=== PATIENT | female | born 1950 | race Caucasian/White ===

== ENCOUNTER 2017-01-04 21:06 | Emergency (ER) | payer OTHER ==
[2017-01-04 22:55] VITALS: BP 126/74
== END 2017-01-04 22:55 | disposition home or self-care (01) ==
LOC: ED 21:06
DX: M54.42 Lumbago with sciatica, left side (principal); I10 Essential (primary) hypertension; E11.9 Type 2 diabetes mellitus without complications
CPT/HCPCS: Q0092

== ENCOUNTER 2017-05-01 16:39 | Inpatient (IN) | payer OTHER ==
[~2017-05-01] VITALS: Ht 149.9 cm; Wt 84.0 kg
[2017-05-01 19:05] LABS: BASOPHIL % 0.4 % (0-2); PLATELET COUNT 210 x10^3mcL (130-400); RED CELL DISTRIBUTION WIDTH 12.7 % (11.5-14.5)
[2017-05-01 19:28] LABS: ALBUMIN 3.3 g/dL (3.4-5.0); BILIRUBIN TOTAL 0.3 mg/dL (0.20-1.00); CALCIUM 9.1 mg/dL (8.5-10.1); CARBON DIOXIDE 27.3 mmol/L (21-32); CREATININE SERUM 2.5 mg/dL (0.6-1.0); POTASSIUM SERUM 3.7 mmol/L (3.5-5.1); TOTAL PROTEIN, SERUM 7.3 g/dL (6.4-8.2)
[2017-05-01 19:35] LABS: T3 TOTAL 0.68 ng/mL
[2017-05-01 19:52] LABS: CK-MB 0.9 ng/mL (0-3.6); ERYTHROCYTE SED RATE 36 mm/hr (0-30)
[2017-05-01 20:02] LABS: microscopic required? YES; urine erythrocyte 1+ (NEGATIVE)
[2017-05-01 20:24] LABS: FREE T4 1.09 ng/dL (0.76-1.46); FREE THYROXINE INDEX 2.8 ug/dL (1.4-4.5); T4(THYROXINE) 7.7 ug/dL (4.7-13.3)
[2017-05-01 22:22] VITALS: BP 131/68
[2017-05-01 23:17] LABS: AMYLASE 39 U/L (25-115); HDL CHOLESTEROL 47 mg/dL (40-60); LIPASE 580 IU/L (73-393); MAGNESIUM 1.8 mg/dL (1.8-2.4); PHOSPHOROUS 3.6 mg/dL (2.5-4.9)
[2017-05-01 23:18] LABS: CHOLESTEROL 265 mg/dL (<200); CHOLESTEROL/HDL RATIO 5.6; TRIGLYCERIDES 467 mg/dL (<150)
[2017-05-01] MEDS ORDERED: NATURAL IRON65 MG PO (23:34)
[2017-05-01] MEDS ORDERED: JANUVIA100 M1 PO (23:37)
[2017-05-01] MEDS ORDERED: DEXILANT60 M1 PO (23:38)
[2017-05-01] MEDS ORDERED: VITAMIN D50000 I4 PO (23:40)
[2017-05-01] MEDS ORDERED: FLUOXETINE HYDR20 M2 PO (23:41)
[2017-05-01] MEDS ORDERED: ATENOLOL25 MG PO (23:42)
[2017-05-01] MEDS ORDERED: LIPI20 PO (23:42)
[2017-05-01] MEDS ORDERED: RANITIDINE HYD150 M2 PO (23:43)
[2017-05-01] MEDS ORDERED: BENTYL20 MG PO (23:44)
[2017-05-01] MEDS ORDERED: BENICAR HCT1 TAB PO (23:46)
[2017-05-01] MEDS ORDERED: NEU300 PO (23:47)
[2017-05-02] MEDS ORDERED: TRESIBA FL200 UNIT/1 SC (01:08)
[2017-05-02] MEDS ORDERED: TRIBENZOR1 TA4 PO (01:13)
[2017-05-02 06:11] LABS: CALCIUM 8.6 mg/dL (8.5-10.1); CARBON DIOXIDE 24.3 mmol/L (21-32); CREATININE SERUM 1.9 mg/dL (0.6-1.0); POTASSIUM SERUM 4.8 mmol/L (3.5-5.1)
[2017-05-02 06:25] VITALS: BP 130/64
[2017-05-02 06:48] LABS: BASOPHIL % 0.4 % (0-2); PLATELET COUNT 196 x10^3mcL (130-400); RED CELL DISTRIBUTION WIDTH 12.7 % (11.5-14.5)
[2017-05-02 07:22] VITALS: BP 99/59
[2017-05-02 09:56] VITALS: BP 111/53
[2017-05-02 12:41] VITALS: Ht 149.9 cm; Wt 84.0 kg
[2017-05-02 13:13] VITALS: BP 109/58
[2017-05-02 16:41] VITALS: BP 113/48
[2017-05-02 20:45] VITALS: BP 134/65
[2017-05-03 06:17] VITALS: BP 106/71
[2017-05-03 07:31] LABS: CALCIUM 8.7 mg/dL (8.5-10.1); CARBON DIOXIDE 23.9 mmol/L (21-32); CREATININE SERUM 1.6 mg/dL (0.6-1.0); MAGNESIUM 1.9 mg/dL (1.8-2.4); PHOSPHOROUS 2.9 mg/dL (2.5-4.9)
[2017-05-03 09:33] VITALS: BP 112/62
[2017-05-03 10:01] LABS: BASOPHIL % 0.3 % (0-2); PLATELET COUNT 202 x10^3mcL (130-400)
[2017-05-03 11:10] LABS: AMPHETAMINE QUAL UR NONE DETECTED (NEG <=1000)
[2017-05-03 14:25] VITALS: BP 103/67
[2017-05-03] MEDS ORDERED: NOR5 PO (15:15)
[2017-05-03] MEDS ORDERED: BG FS (15:15)
[2017-05-03] MEDS ORDERED: LEVEMIR100 U/M1 SC (15:15)
[2017-05-03] MEDS ORDERED: BENICAR HCT1 TAB PO (15:16)
[2017-05-03] MEDS ORDERED: ACCU-CHEK1 EACH MC (15:18)
[2017-05-03] MEDS ORDERED: INSULIN SYRING1 EA10 MC (15:18)
[2017-05-03] MEDS ORDERED: HUMULIN R100 U/1 M1 SQ (15:24)
[2017-05-03 15:25] VITALS: BP 103/67
[2017-05-03] MEDS ORDERED: ATORVASTATIN CA40 M1 PO (15:33)
[2017-05-03] MEDS ORDERED: CIPRO500 MG PO (15:38)
[2017-05-03] MEDS ORDERED: LAC PO (15:38)
[2017-05-03 18:23] VITALS: BP 148/82
== END 2017-05-03 20:37 | disposition home or self-care (01) | DRG 637 ==
LOC: ED 16:39 → DU 20:53
PROVIDERS: Family Medicine; Specialist
DX: E11.00 Type 2 diabetes mellitus with hyperosmolarity without nonketotic hyperglycemic-hyperosmolar coma (NKHHC) (principal); N17.0 Acute kidney failure with tubular necrosis; N39.0 Urinary tract infection, site not specified; D68.69 Other thrombophilia; E87.1 Hypo-osmolality and hyponatremia; E44.1 Mild protein-calorie malnutrition; E11.65 Type 2 diabetes mellitus with hyperglycemia; E11.42 Type 2 diabetes mellitus with diabetic polyneuropathy; E11.51 Type 2 diabetes mellitus with diabetic peripheral angiopathy without gangrene; I10 Essential (primary) hypertension; E78.5 Hyperlipidemia, unspecified; R31.9 Hematuria, unspecified; F32.9 Major depressive disorder, single episode, unspecified; Z68.36 Body mass index [BMI] 36.0-36.9, adult; Z91.14 Patient's other noncompliance with medication regimen; Z79.4 Long term (current) use of insulin
CPT/HCPCS: 36600; 82962; 83880; 84439; J0696; J1815; J3475; J3490; J7030; Q0092

== ENCOUNTER 2018-10-28 11:49 | Observation (INO) | payer OTHER ==
[~2018-10-28] VITALS: Ht 149.9 cm; Wt 95.3 kg
[~2018-10-28 11:49] MED LIST: ACCU-CHEK1 EACH MC; ATENOLOL25 MG PO; ATORVASTATIN CA40 M1 PO; BENICAR HCT1 TAB PO; BENTYL20 MG PO; BG FS; CIPRO500 MG PO; DEXILANT60 M1 PO; FLUOXETINE HYDR20 M2 PO; HUMULIN R100 U/1 M1 SQ; INSULIN SYRING1 EA10 MC; JANUVIA100 M1 PO; LAC PO; LEVEMIR100 U/M1 SC; LIPI20 PO; NATURAL IRON65 MG PO; NEU300 PO; NOR5 PO; RANITIDINE HYD150 M2 PO; TRESIBA FL200 UNIT/1 SC; TRIBENZOR1 TA4 PO; VITAMIN D50000 I4 PO
[2018-10-28 11:59] VITALS: Ht 149.9 cm; Wt 95.3 kg
--- NOTE | 2018-10-28 12:17 | NUR ---
PT IN RM
--- NOTE | 2018-10-28 12:19 | NUR ---
PT HERE FOR C/O CHEST PAIN INTERMITTENT SINCE 2 DAYS AGO TO MIDSTERNAL LOCATION, DESC "IT FEELS LIKE A BROOMSTICK POKING ME." PT STS PAIN OCCASIONALLY RADIATES. PT DENIES PAIN AT THIS TIME. PLACED ON FULL MONITORS
--- NOTE | 2018-10-28 12:22 | NUR ---
DR GRIFFIN AT BEDSIDE FOR MSE
[2018-10-28 12:36] LABS: BASOPHIL % 0.2 % (0-2); PLATELET COUNT 328 x10^3mcL (130-400); RED CELL DISTRIBUTION WIDTH 14.2 % (11.5-14.5)
--- NOTE | 2018-10-28 12:48 | NUR ---
PT REPORTS CP AT 5/10 DULL TO SUBSTERNAL LOCATION AT THIS TIME. NITRO TAB GIVEN
[2018-10-28 12:58] LABS: CALCIUM 10.2 mg/dL (8.5-10.1); CARBON DIOXIDE 29.9 mmol/L (21-32); CREATININE SERUM 1.7 mg/dL (0.6-1.0)
[2018-10-28 13:11] LABS: ALBUMIN 3.5 g/dL (3.4-5.0); BILIRUBIN TOTAL 0.3 mg/dL (0.20-1.00); TOTAL PROTEIN, SERUM 7.5 g/dL (6.4-8.2)
[2018-10-28 13:13] LABS: T4(THYROXINE) 8.3 ug/dL (4.7-13.3)
--- NOTE | 2018-10-28 13:15 | NUR ---
PT REPORTS FEELING BETTER REGARDING CHEST PAIN AND STS "I'M SLEEPY NOW BECAUSE I DIDN'T SLEEP ALL NIGHT."
--- NOTE | 2018-10-28 14:05 | NUR ---
PT ASLEEP, EASY TO AROUSE AWAKE
--- NOTE | 2018-10-28 14:45 | NUR ---
REPORT GIVEN TO JAIRO MAJOR RN
--- NOTE | 2018-10-28 14:45 | NUR ---
REPORT TAKEN FROM ER NURSE, PT TO BE BROUGHT TO MST UNIT AFTTER PLACEMENT OF IV. ROOM CLEAN AND READY FOR PT ARRIVAL.
[2018-10-28] MEDS ORDERED: NEU300 PO (14:54)
[2018-10-28] MEDS ORDERED: ZANTAC 150150 MG PO (14:54)
[2018-10-28] MEDS ORDERED: DICYCLOMINE HCL10 MG PO (14:55)
[2018-10-28] MEDS ORDERED: [UNRECOGNIZED DRUG - CODE] PO (14:56)
[2018-10-28] MEDS ORDERED: ATENOLOL25 MG PO (14:56)
[2018-10-28] MEDS ORDERED: MELOXICAM7.5 M1 PO (14:56)
[2018-10-28] MEDS ORDERED: OLMSRTN-AMLDPN1 EACH PO (14:57)
[2018-10-28] MEDS ORDERED: JANUVIA100 M1 PO (14:57)
[2018-10-28] MEDS ORDERED: DEXILANT60 M1 PO (14:58)
[2018-10-28] MEDS ORDERED: APR10 PO (14:59)
[2018-10-28] MEDS ORDERED: LIPI20 PO (14:59)
[2018-10-28] MEDS ORDERED: PROMETHAZINE25 M3 PO (15:00)
[2018-10-28] MEDS ORDERED: FERROUS SULFAT325 M2 PO (15:00)
[2018-10-28] MEDS ORDERED: TRESIBA FL100 UNIT/1 SQ (15:01)
--- NOTE | 2018-10-28 15:18 | NUR ---
RECEIVED PT FROM ER, PT ADMIT FOR CHEST PAIN, PT IS A/O X4, VERBAL RESPONSIVE, ABLE TO TELL WHAT SHE NEEDS. LUNG SOUND CLEAR BILATERAL, NO COUGH, NO SOB, PT IS ON TELE 1, SB, HR 58, C/O MILD CHEST PAIN 3/10 AND RADIATE TO BACK, BOWEL SOUND PRESENT ALL 4 QUADRANTS, NO DISTENTION, NO TENDER. PEDAL PULSE PRESENT BOTH FEET,NO EDEMA, IV AT RIGHT AC,NO LEAKING, NO INFILTRATIION, ALL ADLS ASSIST, ALL NEED MET, CALL LIGHT IN REACH, WILL CONTINUE TO MONITOR.
[2018-10-28 15:36] VITALS: BP 126/63
--- NOTE | 2018-10-28 19:34 | NUR ---
REPORT GIVEN TO [facility]AGGERMAN NURSE CARE ENDORSED
--- NOTE | 2018-10-28 19:41 | NUR ---
RECIEVED PT FROM DAY NURSE. PT RESTING IN BED COMFORTABLY. DENIES PAIN AT THIS TIME. TELE #1, SINUS TAVARES. DENIES CHEST PAIN, N/V, DIZZINESS, AND PALPATATIONS. NO SOB, ON RA. BREATHING EVEN AND UNLABORED, LUNG SOUNDS CTA. BOWEL SOUNDS ACTIVE X4, LAST BM 10/27. CALL LIGHT WITHIN REACH, BED AT LOWEST POSITION. WILL CONTINUE TO MONITOR.
[2018-10-28 20:20] VITALS: BP 106/67
[2018-10-29 00:20] LABS: UA SPECIFIC GRAVITY >=1.030 (1.005-1.035); microscopic required? YES; urine erythrocyte NEGATIVE (NEGATIVE)
[2018-10-29 00:59] LABS: AMPHETAMINE QUAL UR NONE DETECTED (See below)
--- NOTE | 2018-10-29 02:14 | NUR ---
PT RESTING IN BED WITH EYES CLOSED. LAYING ON L SIDE. NO SIGNS OF DISTRESS NOTED. BREATHING EVEN/UNLABORED ON RA. CALL LIGHT WITHIN REACH, BED AT LOWEST POSITION. WILL CONTINUE TO MONITOR.
--- NOTE | 2018-10-29 02:16 | NUR ---
I HAVE REVIEWED THE DATA COLLECTION BY ISAAC TURCIOS: UNIQUE CLARKE ENTERED ON 10/28-10/29 I CONCUR WITH THE DATA AND ANY EXCEPTIONS OR COMMENTS ARE LISTED BELOW:
--- NOTE | 2018-10-29 02:37 | NUR ---
SPOKE TO DR. AG VIA TELEPHONE. MADE AWARE OF UA RESULTS: 1+ LEUK. REC'D ORDER FOR URINE CULTURE AND ROCEPHIN DAILY STARTING NOW.
--- NOTE | 2018-10-29 03:54 | NUR ---
PT COMPLAINING OF 5/10 DULL EPIGASTRIC PAIN AND N/V. GIVEN PRN NORCO AND ZOFRAN. WILL CONTINUE TO MONITOR.
[2018-10-29 05:51] VITALS: BP 123/58
[2018-10-29 06:28] LABS: CALCIUM 9.8 mg/dL (8.5-10.1); CARBON DIOXIDE 25.3 mmol/L (21-32); CREATININE SERUM 1.9 mg/dL (0.6-1.0); MAGNESIUM 1.7 mg/dL (1.8-2.4); POTASSIUM SERUM 4.9 mmol/L (3.5-5.1)
--- NOTE | 2018-10-29 07:15 | NUR ---
RECIEVED PT RESTING IN BED WITH NO PAIN, DISTRESS, OR SSO. A/O X4. IN INTACT AND PATENT WITH NO REDNESS OR INFLAMMATION. SAFETY PRECAUTIONS IN PLACE, CALL LIGHT WITHIN REACH, WILL MONITOR.
--- NOTE | 2018-10-29 07:20 | NUR ---
RECIEVED PT RESTING IN BED WITH NO PAIN, DISTRESS, OR SOB. PT A/O X4. PT ON TELE MONITOR#1, DENIES CP OR PRESSURE AT THIS TIME. SALIN LOCK INTACT AND PATENT WITH NO REDNESS OR INFLAMMATION IN RAC. SAFETY PRECAUTIONS IN PLACE, CALL LIGHT WITHIN REACH, WILL MONITOR.
[2018-10-29 07:29] LABS: BASOPHIL % 0.4 % (0-2); PLATELET COUNT 276 x10^3mcL (130-400); RED CELL DISTRIBUTION WIDTH 13.8 % (11.5-14.5)
[2018-10-29 08:28] VITALS: BP 116/73
--- NOTE | 2018-10-29 08:45 | NUR ---
RADIAOLOGY AT BEDSIDE PERFORMING ECHO.
--- NOTE | 2018-10-29 10:30 | NUR ---
PT TAKEN DOWN BY MARSHAL TO GET STRESS TEST PROCEDURE DONE.
--- NOTE | 2018-10-29 12:10 | NUR ---
PT BACK FROM STRESS TEST PROCEDURE.
--- NOTE | 2018-10-29 12:19 | NUR ---
PT C/O 8/10 DAILY FROM RECENT STRESS TEST PROCEDURE. MEDICATED WITH NORCO PER EMAR, WILL REASSESS.
[2018-10-29 12:56] VITALS: BP 109/55
--- NOTE | 2018-10-29 13:13 | NUR ---
PT STABLE AT THIS TIME. NO DISTRESS OR SOB NOTED. NO C/O CP OR PRESSURE. ALL CARES TOLERATED WELL. ENDORSED CARE TO ISAAC GUAMAN.
--- NOTE | 2018-10-29 13:30 | NUR ---
RECEIVED BEDSIDE RESPORT FROM NIGHT RN PAT SMITH. PATIENT IS STABLE NO APPARENT SIGNS OF PAIN, SOB, OR RESPIRATORY DISTRESS. PATIENT IS ON ROOM AIR. IV TO THE RIGHT AC INTACT, INFUSING WELL. NO EDEMA OR ERYTHEMA NOTED TO SITE. PATIENT DENIES OTHER NEEDS AT THIS TIME. QUESTIONS AND CONCERNS ADDRESSED. SAFETY PRECAUTIONS IN PLACE.
--- NOTE | 2018-10-29 15:02 | NUR ---
ADMINISTERED MEDICATION PER EMAR. PATIENT TOLORATED WELL. EDUCATED ON NEED FOR MEDICATION, WELL ADVERSE EFFECTS TO RESPORT. PATIENT VERBALIZED UNDERSTANDING. DENIES OTHER NEEDS AT THIS TIME. CALL LIGHT AND PHONE WITHIN REACH. BED IN LOW POSITION, BED RIALS UP X2. QUESTIONS AND CONCERNS ADDRESSED. SAFETY PRECAUTIONS IN PLACE.
[2018-10-29 16:32] VITALS: BP 122/56
--- NOTE | 2018-10-29 17:00 | NUR ---
PATIENT IS STABLE, NO APPARENT SIGNS OF PAIN, SOB, OR RESPIRATORY DISTRESS. PATIENT DENIES CHEST PAIN, DIZZINESS OR HEADACHE. IV DISCONTINUED. ID BANDS REMOVED. DISCHARGE INSTRUCTIONS GIVEN, PATIENT VERBALIZED UNDERSTANDING OF DISCHARGE INSTRUCTIONS AND FOLLOWUP APPOINTMENTS PENDING. ALL PERSONAL BELONGINGS WITH PATIENT. PATIENT WHEELED DOWN BY EYELET ROW MARKER VIA WHEEL CHAIR. DISCHARGE COMPLETE.
== END 2018-10-29 17:10 | disposition home or self-care (01) | DRG 313 ==
LOC: ED 11:49 → DU 14:17
PROVIDERS: Emergency Medicine; ADMIT Internal Medicine Pulmonary Disease
DX: R07.9 Chest pain, unspecified (principal); Z68.41 Body mass index [BMI] 40.0-44.9, adult; E11.22 Type 2 diabetes mellitus with diabetic chronic kidney disease; I12.9 Hypertensive chronic kidney disease with stage 1 through stage 4 chronic kidney disease, or unspecified chronic kidney disease; N18.9 Chronic kidney disease, unspecified; K21.9 Gastro-esophageal reflux disease without esophagitis; E66.9 Obesity, unspecified
CPT/HCPCS: 82962; 83880; A9500; G0378; J0696; J1815; J2405; J2785; J7050; J7060; Q0092

== ENCOUNTER 2018-11-04 01:10 | Emergency (ER) | payer OTHER ==
[~2018-11-04] VITALS: Ht 152.4 cm; Wt 92.5 kg
[~2018-11-04 01:10] MED LIST changes: +APR10 PO; +DICYCLOMINE HCL10 MG PO; +FERROUS SULFAT325 M2 PO; +MELOXICAM7.5 M1 PO; +OLMSRTN-AMLDPN1 EACH PO; +PROMETHAZINE25 M3 PO; +TRESIBA FL100 UNIT/1 SQ; +ZANTAC 150150 MG PO; +[UNRECOGNIZED DRUG - CODE] PO
[2018-11-04 01:14] VITALS: Ht 152.4 cm; Wt 92.5 kg
[2018-11-04 02:00] VITALS: BP 132/67
== END 2018-11-04 02:00 | disposition home or self-care (01) ==
LOC: ED 01:10
DX: B02.9 Zoster without complications (principal); I10 Essential (primary) hypertension; E11.9 Type 2 diabetes mellitus without complications; Z98.890 Other specified postprocedural states

== ENCOUNTER 2020-02-11 16:16 | Emergency (ER) | payer OTHER ==
[~2020-02-11] VITALS: Ht 152.4 cm; Wt 81.6 kg
[~2020-02-11 16:16] MED LIST changes: +COR6 PO; +ELIQUIS2.5 MG PO; +L40I PO; +QUETIAPINE FUMA25 M1 PO; +TYL325 PO
[2020-02-11 16:41] VITALS: Ht 152.4 cm; Wt 81.6 kg
[2020-02-12 12:34] VITALS: BP 140/86
== END 2020-02-12 12:34 | disposition home or self-care (01) ==
LOC: ED 16:16
DX: M54.5 Low back pain (principal); R11.0 Nausea; I10 Essential (primary) hypertension; E11.9 Type 2 diabetes mellitus without complications
CPT/HCPCS: J2765; Q0162